=== PATIENT | male | born 1990 | race Native Hawaiian/Other Pacific Islander ===

== ENCOUNTER 2018-08-18 09:14 | Outpatient (CLI) | payer OTHER | END 2018-08-18 21:39 | disposition home or self-care (01) | LOC: LABW 09:14 | DX: K52.89 Other specified noninfective gastroenteritis and colitis (principal) | CPT/HCPCS: 82272; 83630; 87015; 87045; 87324; 87328; 87329; 87449; 87507; 87899 ==